=== PATIENT | female | born 1995 | race Caucasian/White ===

== ENCOUNTER 2018-02-19 17:40 | Emergency (ER) | payer MEDICAID, SELFPAY ==
[2018-02-19 17:41] VITALS: BP 118/60; PULSE 100; RESP 16; TEMP 36.4; O2SAT 97; BMI 23.4
--- NOTE | 2018-02-19 17:56 | ED.VISSUMM ---
- ER Visit Summary Date of Service: 02/19/18 Chief Complaint: Fever to 101.3, nasal congestion and nonproductive cough History of Present Illness: The patient is a 22 F who presents with onset of upper respiratory symptoms that started today. She is a smoker half pack per day. She states she only smoked 1 cigarette today. Does complain of headache. Denies photophobia steps of her neck. She denies earache. She does combine of nasal congestion and runny nose. She does complain of mild sore throat. She denies any chest pain, dyspnea, dyspnea on exertion. She does report a nonproductive cough. She denies any GI or symptoms. She denies myalgias or arthralgias. Physical Examination: Vital signs are normal. She is not febrile or hypoxic. She appears in no distress. She was smiling laughing talking to her significant other when I entered the room. Head is atraumatic normocephalic. Pupils are equal round reactive. Extraocular muscles are intact. TMs are pearly white with landmarks noted. Nares patent with clear minimal drainage. Posterior pharynx without erythema or exudate. Uvula is midline. There is no dysphonia or dysphasia. Trachea is midline. There is no stridor with auscultation of the neck. There is no cervical lymphadenopathy. There is no meningeal findings. Heart is regular without murmur, gallop or rub. S1 and S2 are normal. Lungs are clear to auscultation with good movement of air bilaterally. Patient is alert and oriented ?3. Motor is 5 over 5. Sensory is intact. DTRs are symmetric with no clonus or Babinski sign. Cranial 2 through 12 are intact. Cerebellar testing is normal. There is no rash and specifically petechia purpura. Test Results: Not indicated Emergency Department Course and Treatment: Symptomatic and patient was told to stop smoking Treatment Plan: Discharged home with appropriate home-going instructions Disposition: Discharge to home Impression: 1. Acute viral upper respiratory infection 2. Documented temperature 101.3 by history 3. History of tobacco use This note was generated with [employer] software. It may contain incorrect words, spelling, and punctuation that were not noted in review of the chart prior to signing ED Disposition - Plan for ED Patient: Disposition: Home or Assisted Living Chief Complaint: Fever Instructions: ED Upper Resp Infec No Abx Tx Referrals: Diomedes Greer MD [Primary Care Provider] - 10-14 Days if not better Additional Instructions: It is in your best interest to stop smoking today. Because you are a smoker you may have a cough for 2-4 weeks. You may be ill for another 10 days.
== END 2018-02-19 18:18 | disposition home or self-care (01) ==
PROVIDERS: Emergency Provider Emergency Medicine; Family Provider Family Medicine; PCP Family Medicine
DX: J06.9 Acute upper respiratory infection, unspecified (principal); F17.210 Nicotine dependence, cigarettes, uncomplicated
CPT/HCPCS: 99281

== ENCOUNTER → 2018-06-12 16:30 | Outpatient (CLI) | payer MEDICAID, SELFPAY ==
[2018-06-20 08:50] LABS: HPV APTIMA, High Risk Positive (Negative)
[2018-06-20 09:07] LABS: HPV Reflexed? YES, CHARGE PATIENT
== END ==
PROVIDERS: Family Provider Family Medicine; Visit Provider Obstetrics & Gynecology
DX: Z12.4 Encounter for screening for malignant neoplasm of cervix (principal)
CPT/HCPCS: 87624; 88175; G0145

== ENCOUNTER → 2019-02-27 15:23 | Outpatient (CLI) | payer MEDICAID, SELFPAY | PROVIDERS: Visit Provider Obstetrics & Gynecology | DX: R30.0 Dysuria (principal) | CPT/HCPCS: 87077; 87086; 87088; 87186 ==

== ENCOUNTER 2021-01-05 06:10 | Emergency (ER) | payer MEDICAID, SELFPAY ==
[2020-12-16 11:01] VITALS: BMI 24.0
[2021-01-05 06:11] VITALS: BP 129/72; PULSE 91; RESP 16; TEMP 36.1; O2SAT 100; BMI 22.8
--- NOTE | 2021-01-05 06:15 | CT_ITS ---
STUDY: CT ABDOMEN AND PELVIS WITH CONTRAST REASON FOR EXAM: Female, 25 years old. RLQ abdominal pain -- IV PO Contrast RADIATION DOSAGE (If Supplied By Facility): CTDIvol = ( 8.26 ) mGy, DLP = ( 326.02 ) mGycm TECHNIQUE: Transaxial images were obtained from the dome of the diaphragm to the symphysis pubis with oral contrast. IV 100mL Isovue-300 was administered. Sagittal and coronal images were reconstructed. Individualized dose optimization techniques were used for this CT. COMPARISON: None. FINDINGS: The visualized lung bases are unremarkable. The visualized portions of the heart are within normal limits. Normal liver. Normal gallbladder and extrahepatic biliary system. Normal spleen. Normal pancreas. Normal bilateral adrenal glands. There is a 1.1 cm x 1.3 cm cyst in the lateral midportion of the right kidney. Normal left kidney. There is a small hiatal hernia. Normal small intestine. Normal colon. The appendix is visualized and appears normal. The appendix is retrocecal in position. Normal abdominal aorta. Normal inferior vena cava. Normal retroperitoneum. Normal urinary bladder. IUD is seen within the uterus. Normal abdominal wall. Normal osseous structures. CT/Abdomen/Pelvis WITH Contrast IMPRESSION: Normal enhanced CT of the abdomen and pelvis. Electronically Signed: Tico Ramos MD at 8:23 EDT , Service support ,
--- NOTE | 2021-01-05 06:16 | ED.VISSUMM ---
- ER Visit Summary Date of Service: 01/05/21 Chief Complaint: Abdominal pain History of Present Illness: The patient is a 25 F who presents with abdominal pain. She states the pain started about 4 hours ago. It woke her up from sleep. She describes sharp pains on the right side of her abdomen. It does not radiate. Nothing seems to make it better or worse. She has had nausea and she vomited once at home. No diarrhea or constipation. She denies any dysuria or hematuria. She denies any chance of . She does have an IUD in place. She has had C-sections but no other abdominal surgeries. She denies any fevers. She took nothing for this at home. Physical Examination: Vital signs reviewed. HEENT exam unremarkable. Heart is regular rate and rhythm without murmurs. Lungs are clear to auscultation. Abdomen is soft with tenderness in the right lower quadrant. There is no guarding or rebound tenderness. Extremities reveal no edema. Skin exam normal. Neurologic exam normal. Test Results: Laboratory studies show white blood cell count 13.7. Total bilirubin is 1.2. Patient does have 100 leukocytes, 50-100 white blood cells in the urine. Emergency Department Course and Treatment: Patient was given morphine and Zofran. I did give her a dose of IV Rocephin. Since she is having right lower quadrant pain I will do a CAT scan. Should be reevaluated by the oncoming physician. Treatment Plan: [] Disposition: Pending Impression: Lower quadrant abdominal pain, UTI This note was generated with [employer] dictation software. It may contain incorrect words, spelling, and punctuation that were not noted in review of the chart prior to signing ED Disposition - Plan for ED Patient: Referrals: Care Physician,No Primary [Primary Care Provider] -
[2021-01-05] MEDS: Morphine 4 MG/ML Syringe IV (06:22)
[2021-01-05] MEDS: Ondansetron 4 MG/2 ML Vial IV (06:22)
[2021-01-05 06:23] LABS: Absolute Lymphocyte Count 1.48 X10^3/uL (0.83-4.51); Absolute Neutrophil Count 10.9 X10^3/uL (2.0-7.7); Basophil# 0.04 X10^3/uL; Basophil% 0.3 % (0-1); Eosinophil# 0.08 X10^3/uL; Eosinophils% 0.6 % (0-5); Hematocrit 43.7 % (37-47); Hemoglobin 14.5 g/dL (12.0-15.0); Lymphocyte # 1.48 X10^3/ul (4.0); Lymphocyte % 10.8 % (19-41); Mean Corp Hgb Conc 33.2 g/dL (32-36); Mean Corpuscular Volume 90.3 fL (81-99); Monocyte# 1.12 X10^3/uL; Monocyte% 8.2 % (0-10); NRBC Flagged by Analyzer 0 % (0-5); Neutrophil # 10.89 X10^3/uL (2.7-7.7); Neutrophil % 79.8 % (47-70); Platelet Count 293 K/mm3 (150-450); RBC Distribution Width CV 12.2 % (11.6-14.6); RBC Distribution Width SD 40.1 fl (35.1-43.9); Red Blood Count 4.84 M/mm3 (4.2-5.4); White Blood Count 13.7 K/mm3 (4.4-11.0)
[2021-01-05 06:30] LABS: Color, Urine Yellow (Yellow); Glucose, Dipstick Normal (Normal); Ketone-Dipstick 50 mg/dl (Negative); Leukocyte Esterase-Dipstick 100 /ul (Negative); Nitrite-Dipstick Positive (Negative); Occult Blood-Urine 250 /ul (Negative); Protein-Dipstick Negative (Negative); Urine Bilirubin Dipstick Negative (Negative); Urine Clarity Sl. Cloudy (Clear); Urine Urobilinogen Normal (Normal)
[2021-01-05 06:31] LABS: Mucous, Urine 0 SEEN /hpf (<or=2+)
[2021-01-05 06:36] LABS: Bacteria 3+ /hpf (None Seen); Red Blood Cells-Urine 25-50 SEEN /hpf (0-5); Squamous Epithelial Cells - UA 0-5 SEEN /hpf (5-10); White Blood Cells 50-100 SEEN /hpf (0-5)
[2021-01-05 06:37] LABS: Internal QC Validated? YES +Cl - CLEAR BKGD; Pregnancy, Urine Negative Negative
[2021-01-05 06:42] LABS: ALB/GLOB Ratio 1.2 RATIO (0.9-2.4); AST(SGOT) 11 U/L (15-37); Alanine Aminotransfer ALT/SGPT 18 U/L (13-56); Albumin, Serum 4.2 g/dL (3.2-5.0); Alkaline Phosphatase 68 U/L (45-117); Anion Gap 6 (5-15); BUN 8 mg/dL (7-18); BUN/Creat Ratio 11.4 RATIO (10-20); Calcium,Total 9.2 mg/dL (8.5-10.1); Chloride 104 mmol/L (98-107); EST Glomerular Filtration Rate 108 mL/min (>60); Est Glom Filt Rate - Afr Amer 130 mL/min (>60); Estimated Creatinine Clearance 114.01 ml/min; Globulin 3.4 g/dL (2.2-4.2); Glucose 100 mg/dL (74-106); Lipase 36 U/L (73-393); Potassium 3.6 mmol/L (3.5-5.1); Protein, Total 7.6 g/dL (6.4-8.2); Sodium Level 138 mmol/L (136-145)
[2021-01-05] MEDS: Ceftriaxone 1 GM/50 ML BAG IV (07:16)
--- NOTE | 2021-01-05 08:28 | ED.DEP ---
ED Disposition - Plan for ED Patient: Disposition: Home or Assisted Living Diagnosis: UTI (urinary tract infection) Instructions: ED Bladder Infection, Female (Adult) Prescriptions: Cephalexin [Keflex] 500 mg PO Q12 #14 capsule Prescription Printed Referrals: Care Physician,No Primary [NON-STAFF] -
[2021-01-05 08:35] VITALS: BP 124/68; PULSE 71; RESP 15; O2SAT 98
== END 2021-01-05 08:35 | disposition home or self-care (01) ==
PROVIDERS: Emergency Provider Emergency Medicine; PCP Family Medicine
DX: N39.0 Urinary tract infection, site not specified (principal); R10.31 Right lower quadrant pain; Z72.0 Tobacco use
CPT/HCPCS: 74177; 80053; 81001; 81025; 83690; 85025; 96365; 96375; 99284; J7050; Q9967; A4216; J2405